=== PATIENT | male | born 1990 | race American Indian/Alaskan Native ===

== ENCOUNTER 2019-09-27 16:49 | Emergency (ER) | payer OTHER ==
[2019-09-27 17:36] VITALS: BP 147/87
[2019-09-27] MEDS ORDERED: IBUPROFEN 600 MG TAB PO ONE ×2 (17:38→17:41)
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
[2019-09-27] MEDS ORDERED: ACETAMINOPHEN 500 MG TAB PO ONE (20:15)
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
== END 2019-09-27 21:30 | disposition home or self-care (01) ==
LOC: ED 16:49
DX: M62.830 Muscle spasm of back (principal); M62.838 Other muscle spasm; Z79.1 Long term (current) use of non-steroidal anti-inflammatories (NSAID); Z79.2 Long term (current) use of antibiotics; Z79.899 Other long term (current) drug therapy; V49.49XA Driver injured in collision with other motor vehicles in traffic accident, initial encounter; Y93.89 Activity, other specified; Y92.488 Other paved roadways as the place of occurrence of the external cause; Y99.8 Other external cause status
CPT/HCPCS: 72100

== ENCOUNTER 2022-05-11 13:21 | Emergency (ER) | payer SELFPAY ==
[2022-05-11 13:31] VITALS: BP 140/99
[2022-05-11 14:05] LABS: Bilirubin,Urine NEG (Negative); Blood,Urine NEG (Negative); Color,Urine Yellow (Yellow); Protein,Urine <15 mg/dL mg/dL (Negative); Urobilinogen,Urine < 2.0 mg/dL (<2.0)
[2022-05-11 14:06] LABS: Mucus,Urine FEW /HPF
[2022-05-11 15:12] LABS: Basophils % (Auto) 0.4 % (0.0-1.8); Eosinophils % (Auto) 0.9 % (0.0-4.3); Hematocrit 41.9 % (35.5-45.6); Hemoglobin 13.3 gm/dl (11.8-15.2); Lymphocytes # (Auto) 0.9 K/mm3 (1.2-5.4); Lymphocytes % (Auto) 19.1 % (13.4-35.0); Mean Corpuscular HGB Conc 32 % (32-34); Mean Corpuscular Volume 72 fl (84-94); Monocytes # (Auto) 0.3 K/mm3 (0.0-0.8); Monocytes % (Auto) 5.9 % (0.0-7.3); Platelet Count 170 K/mm3 (140-440); Red Blood Count 5.86 M/mm3 (3.65-5.03); Red Cell Distribution Width 14.7 % (13.2-15.2)
[2022-05-11 15:42] LABS: Alanine Aminotransferase 112 units/L (7-56); Albumin 4.5 g/dL (3.9-5); BUN/Creatinine Ratio 11; Blood Urea Nitrogen 12 mg/dL (9-20); Calcium 9.2 mg/dL (8.4-10.2); Hemolysis Index 1
--- NOTE | 2022-05-11 18:51 | Cat Scan Report ---
CT abdomen pelvis w con INDICATION / CLINICAL INFORMATION: abdomen pain 100ml of [id number]. TECHNIQUE: Axial CT images were obtained through the abdomen and pelvis after 100 cc of Omnipaque [address] scans at this location are performed using CT dose reduction for ALARA by means of automated exposure control. COMPARISON: None available. FINDINGS: LOWER CHEST: No significant abnormality LIVER: No significant abnormality GALLBLADDER/BILIARY TREE: Gallbladder is partially contracted without evidence of acute abnormality. No significant biliary dilatation. PANCREAS: No significant abnormality SPLEEN: No significant abnormality ADRENALS: No significant abnormality RIGHT KIDNEY / URETER: No significant abnormality LEFT KIDNEY / URETER: No significant abnormality URINARY BLADDER: No significant abnormality REPRODUCTIVE ORGANS: No significant abnormality STOMACH / BOWEL: No evidence of bowel obstruction or inflammation. Normal appendix. LYMPH NODES: No significant adenopathy. VASCULATURE: No significant abnormality. OTHER: No free air, free fluid, or focal fluid collection is identified. SKELETAL SYSTEM: No acute osseous findings. IMPRESSION: No significant abnormality of the abdomen or pelvis. Signer Name: Ruddy Welsh MD Signed: 05/11/2022 6:47 PM Workstation Name: [id number]
== END 2022-05-11 15:40 | disposition left against medical advice (07) ==
LOC: ED 13:21
DX: R10.9 Unspecified abdominal pain (principal); Z53.21 Procedure and treatment not carried out due to patient leaving prior to being seen by health care provider
CPT/HCPCS: 36415; 74177; 80053; 81001; 83690; 85025; Q9967